=== PATIENT | female | born 1960 | race Caucasian/White ===

== ENCOUNTER 2022-04-19 00:01 | Day surgery (SDC) | payer OTHER, SELFPAY ==
[2022-04-14 07:55] VITALS: BMI 21.5
--- NOTE | 2022-04-14 08:20 | PC.NURSE ---
ATTENTION TEODORA'S STAFF!!!!!!!!!!!! PLEASE GIVE THESE PREOP INSTRUCTIONS TO THE PATIENT AT THE TIME OF TESTING!!!!!!!!!! Report to the Outpatient Waiting Room, entrance under the green pavilion located off [facility] [address], at time _09_ on date _Monday04/19/22_ OR Time: _1129_. Time changes happen often and if your time is changed the preop area will call you the afternoon before. - You and your visitor will be asked to self-screen and do not enter if you have any COVID symptoms. - Only one visitor and NO children visitors are allowed at this time. YOU MAY HAVE TWO (2) VISITORS ONCE ADMITTED TO YOUR ROOM. - The patient visitor is requested to leave or wait in car when not with patient due to restrictions. - A mask is required within the hospital. Patients may have clear liquids (water, carbonated beverages, clear teas, apple juice) until 3 hours prior to surgery ( AT 0830) with a maximum of 20 ounces. - No food from midnight until time of surgery - Take the following medications with a SIP of water the morning of surgery: _LEVOTHYROXINE, GABAPENTIN, OXYCODONE, ROPINOROLE_ Medications to discontinue per physician N/A Date to take last dose N/A Please no make-up, nail english, hairspray, perfume, deodorant, or body powder the day of surgery. No jewelry (including any body piercings) or valuables the day of surgery, leave them at home. Please take a shower or bath the night before, or the morning of, surgery with an antibacterial soap. Wear comfortable, loose fitting clothing. - Jewelry must be removed prior to entering the operating room. Rings and piercings that are not removed may be cut off. - The hospital will not accept responsibility for valuables. - Please leave all valuables, including medications, at home the day of surgery. If you are going home after surgery, a licensed wood pile driver operator must drive you home. - NO public transportation without another adult. - We recommend that an adult stay with you for 24 hours following discharge. - We also recommend that you do not drive, make important decision, drink alcoholic beverages, or take any drugs that were not prescribed by your health care provider for at least 24 hours after your discharge time. Follow any additional instructions given to you from your surgeon. If you or anyone in your household have experienced Covid symptoms in the past week, please notify your surgeon or the nurse liaison at the phone number below for possible testing. Telephone instructions given to _KUMAR__and asked if any additional questions and then verbalized understanding. Patient advised to call surgeon office or pre surgery nurse liaison [phone] if any additional questions.
--- NOTE | 2022-04-18 11:35 | P.PNAN_ITS ---
Anes - Initial Pre Proc Eval Procedure: Operation Date: 04/19/22 11:30 Proposed Procedures p Left Sacral Iliac Joint Fusion, Corelink - Valente Simmons MD Date/Time: 04/18/22 11:35 Surgeon: Valente Simmons MD Pre Op Diagnosis: Sacral Sacroiliitis Patient Data Age: 62 Gender: F Height: 1.63 m Weight: 57 kg Allergies Allergy/AdvReac Type Severity Reaction Status Date / Time No Known Allergies Allergy Verified 04/19/22 09:12 Home Medications Medication Instructions Recorded Confirmed Type atorvastatin 20 mg tablet 20 mg PO DAILY 04/14/22 04/19/22 History calcium carbonate 600 mg-vitamin 1 tablet PO DAILY 04/14/22 04/19/22 History D3 5 mcg (200 unit) tablet furosemide 20 mg tablet 20 mg PO DAILY 04/14/22 04/19/22 History gabapentin 800 mg tablet 8,003 mg PO TID 04/14/22 04/19/22 History levothyroxine 100 mcg tablet 100 mcg PO DAILY 04/14/22 04/19/22 History oxycodone-acetaminophen 7.5 mg-325 1 tablet PO QID 04/14/22 04/19/22 History mg tablet potassium chloride 20 mEq 20 meq PO DAILY 04/14/22 04/19/22 History tablet,extended release(part/cryst) (Klor-Con M) ropinirole 4 mg tablet 4 mg PO HS 04/14/22 04/19/22 History Patient hx anesthesia problems: none Family hx anesthesia problems: none Results Review: All pre-operative results and documents have been reviewed as part of the pre- operative evaluation. [facility] Past Medical History Medical History (Updated 04/18/22 @ 11:37 by Juan Wren MD) Back pain Chronic narcotic use COPD (chronic obstructive pulmonary disease) Engages in vaping Hyperlipidemia Hypothyroidism Social History Social History (Updated 04/14/22 @ 09:06 by Isabella Crockett RN) Smoking packs per day: 1.5 Smoking cigarettes per day: 30.0 Years smoked: 45 (STOPPED CIGARETTES 2020 CURRENTLY VAPES) Smoking pack-years: 67.50 Smoking status: Former smoker Tobacco type: cigarettes and e-cigarettes/vaping Smoking end date: 07/31/19 Additional smoking assessment comments: STOPPED CIGS 2019; NOW VAPES Alcohol intake: current Drinks per week: 1 Substance use: never Last use: 07/31/2019 Living arrangements: with family Spiritual care concerns: No Agree to blood products: Yes Anes - Eval Final PreProcedure Day of Procedure 04/18/22 11:35 Patient weight: normal Heart: regular rate and rhythm Lungs: clear to auscultation and normal air movement Airway: Mallampati scale class II Neurological: alert and oriented Last oral intake: >/= 8 hours ASA classification: III Emergent: no Anesthetic plan: proceed Anesthesia type and monitoring: general ETT Results Review: All pre-operative results and documents have been reviewed as part of the pre- operative evaluation. Informed Consent: The patient's anesthetic plan and its attendant risks and benefits were discussed with the patient/family/POA. Questions were solicited and answers provided to the satisfaction of the patient/family/POA.
[2022-04-19] VITALS (13 sets, daily range): BP systolic 97–156; BP diastolic 65–87; PULSE 56–79; RESP 12–18; TEMP 35.7–37.3; O2SAT 94–100; BMI 21.2
--- NOTE | ~2022-04-19 | XR_ITS ---
EXAMINATION: XR fluoroscopy no charge DATE: 04/19/2022 11:10 CDT INDICATION: LT SACRAL ILIAC JNT FUSION . TECHNIQUE: 3 fluoroscopic images of the left sacroiliac joint were obtained during left sacroiliac hang int fusion performed by the surgeon. I was not present in the operating room. Fluoroscopy exposure ti me was 2 minutes and 15 seconds. Dose area product 2.4625 mGym2. Cumulative air Kerma 134.18 mGy. COMPARISON: None FINDINGS: 3 intraoperative views demonstrate hardware fusion of the left SI joint. Partial visualization of low er lumbar fusion hardware. Partial visualization of a stimulator in the right lower back. IMPRESSION: Fluoroscopic documentation of left SI joint fusion. Please refer to the operative note for complete p rocedural details . Reviewed, dictated and finalized at location K. IMPRESSION: Fluoroscopic documentation of left SI joint fusion. Please refer to the operati ve note for complete procedural details .
[2022-04-19] MEDS: LACTATED RINGERS 1,000 ML 30 ML IV CONT ×2 (09:52→12:41)
--- NOTE | 2022-04-19 10:55 | PM.IMHP ---
H&P: HPI History of Present Illness Date/Time: 04/19/22 10:55 Chief Complaint: Left SI joint pain Narrative: Sophy is a 6-year-old female with left sacroiliitis who presents for a left sacroiliac joint fusion. She has not changed since we saw her last. She does not have new numbness or weakness of her extremities. She does have distal weakness in both lower extremities. She is not having new bowel or bladder difficulty. Review of Systems Review of Systems: Patient denies shortness of breath, cough, fever, chills, weight loss, weight gain, chest pain, dysuria. She acknowledges left sacroiliac pain. Review of systems is otherwise negative except as noted elsewhere. This is on 12 systems. [facility] Past Medical History Medical History Back pain Chronic narcotic use COPD (chronic obstructive pulmonary disease) Engages in vaping Hyperlipidemia Hypothyroidism Social History Social History Smoking packs per day: 1.5 Smoking cigarettes per day: 30.0 Years smoked: 45 (STOPPED CIGARETTES 2020 CURRENTLY VAPES) Smoking pack-years: 67.50 Smoking status: Former smoker Tobacco type: cigarettes and e-cigarettes/vaping Smoking end date: 07/31/19 Additional smoking assessment comments: STOPPED CIGS 2019; NOW VAPES Alcohol intake: current Drinks per week: 1 Substance use: never Last use: 07/31/2019 Living arrangements: with family Spiritual care concerns: No Agree to blood products: Yes Meds Home Medications and Allergies Home Medications Medication Instructions Recorded Confirmed Type atorvastatin 20 mg tablet 20 mg PO DAILY 04/14/22 04/19/22 History calcium carbonate 600 mg-vitamin 1 tablet PO DAILY 04/14/22 04/19/22 History D3 5 mcg (200 unit) tablet furosemide 20 mg tablet 20 mg PO DAILY 04/14/22 04/19/22 History gabapentin 800 mg tablet 8,003 mg PO TID 04/14/22 04/19/22 History levothyroxine 100 mcg tablet 100 mcg PO DAILY 04/14/22 04/19/22 History oxycodone-acetaminophen 7.5 mg-325 1 tablet PO QID 04/14/22 04/19/22 History mg tablet potassium chloride 20 mEq 20 meq PO DAILY 04/14/22 04/19/22 History tablet,extended release(part/cryst) (Klor-Con M) ropinirole 4 mg tablet 4 mg PO HS 04/14/22 04/19/22 History Allergies Allergy/AdvReac Type Severity Reaction Status Date / Time No Known Allergies Allergy Verified 04/19/22 09:12 Vital Signs Vital Signs - 24 hr 04/19/22 09:53 Temperature 99.1 F Pulse Rate 64 Respiratory Rate 16 Blood Pressure 121/85 Pulse Oximetry 96 Oxygen Delivery Room Air Exam Neuro: Other: Strength is significantly diminished in dorsal and plantar flexion bilaterally. She otherwise has normal and symmetric strength. Sensation is intact to light touch in the lower extremities. Clear to auscultation Regular rate and rhythm Assessment and Plan Assessment and plan (1) Sacroiliitis: Code(s): M46.1 - Sacroiliitis, not elsewhere classified Status: Acute Plan Sophy is a 62-year-old female who presents for left sacroiliac joint fusion. I described to her that operation again, its risks, potential benefits, the operative and postoperative course in detail and answered all of her questions personally. She indicates understanding and elects to proceed with that operation.
--- NOTE | 2022-04-19 10:58 | WPDHPUPDATE1 ---
History and Physical Update Update Date/Time: 04/19/22 10:58 History and Physical has been reviewed, including an updated exam of the patient. There are NO changes in the patient's condition. Risks, benefits, and alternatives have been discussed and questions answered. Patient agrees to proceed with procedure.
[2022-04-19] MEDS: ceFAZolin 2 GM/D5W 50 ML 2 GM/50 ML BAG IVPB (11:04)
[2022-04-19] MEDS: LIDO 1%/EPINEPHRINE 1:100,000 20 ML VIAL 10 ML INFILTRATE (11:44)
[2022-04-19] MEDS: HEMOSTATIC MATRIX (SURGIFLO with THROMBIN) KIT 1 KIT XX (11:50)
--- NOTE | 2022-04-19 12:23 | W.PM.PROC2 ---
Procedure Note - Detailed Date of Procedure 04/19/22 Pre-op Diagnosis Sacral Sacroiliitis Post-op Diagnosis Same Procedure Performed Left sacroiliac joint fusion Surgeon Valente Simmons MD [employer] Farm[employer] Edwar Anesthesia General Indications Sophy is a 62-year-old female with a left sacroiliitis who presents for left sacroiliac joint fusion. Description of Procedure Sophy was taken to the operating room in the supine position, was sedated, intubated and placed under general anesthesia in routine fashion. She was then turned into the prone position on gel rolls. Using fluoroscopy the area of operation on the left buttock was marked. The outline of the sacrum was marked and an incision drawn along it. This area was injected with 0.5% lidocaine with [id number] epinephrine. It was prepped and draped in routine sterile fashion. Incision was made with a 15 blade scalpel. A K-wire was placed against the sacrum and using a lateral view position and distal to the foraminal line within the SI joint. Inlet and outlet views were used to advance the K-wire across the SI joint short of the foraminal line. The K-wire was extended and dilators placed over it. A measurement was taken in a 45 mm device was chosen. Sequentially a 40 mm device and another 40 mm device were used in the 2nd and 3rd positions. The middle dilators were removed and the drill followed by the tap were placed under fluoroscopy using the outlet view to stay short of the foraminal line. The 45 mm x 11.5 mm device was then placed across the SI joint through the pelvis into the sacrum. A guide tube was used to place 2 additional K-wires which were in like fashion extended, the tissue dilated, the distance measured, the drill and tap used to create a hole and the device placed using the appropriate petrol tanker driver. After placement of each device a funnel was used to place additional allograft material and the device. Autograft material from the drill and tap were also placed within the devices. Inlet outlet and lateral views were again taken to confirm good position of the devices which was confirmed. The wound was then copiously irrigated with bacitracin irrigation all bleeding stopped with bipolar and Bovie cautery and Gelfoam thrombin powder. The wound was then closed in layered fashion with 3-0 Vicryl interrupted sutures in the dermis and a running 4-0 Monocryl subcuticular stitch in the skin and were dressed with Dermabond and a Telfa and Tegaderm dressing. The patient was then allowed to wake up in the operating room was taken to the recovery room in stable condition. There were no immediate complications of this operation. All counts were reported correct at the end of the case. Blood loss was 25 cc. The patient was neurologically at her baseline postoperatively. Implants Three CoreLink threaded dowel fusion devices across the left SI joint. Estimated Blood Loss 25 IV Fluids 1,000 Complications None Condition Stable Disposition PACU
--- NOTE | 2022-04-19 14:22 | SUR.PHASEI ---
1400 PT MEETS ANESTHESIA CRITERIA TO BE DISCHARGED FROM PACU. NO ROOM AVAILABLE. ON HOLD IN PACU.
--- NOTE | 2022-04-19 14:25 | ADMGEN ---
This patient, Sophy Monterroso, was admitted to Medical Room 244-. Patient/family oriented to hospital policies and general routines including ID bracelet, bed and alarms, visiting hours, pain management, procedures, bathroom and other care routines, personal items, smoking policy, room service/diet, and visiting hours. Information on how to activate the Rapid Response Team has been discussed. Patient/Family are encouraged to report perceived risks to care and to ask questions if they do not understand what they are told or what they should do.
[2022-04-19] MEDS: KCL 20 MEQ/D5/0.45% SOD CHL 1,000 ML 30 ML IV CONT (15:30)
[2022-04-19] MEDS: FUROSEMIDE 20 MG TABLET PO (15:31)
[2022-04-19] MEDS: ATORVASTATIN 20 MG TABLET PO (15:32)
[2022-04-19] MEDS: GABAPENTIN 400 MG CAPSULE 800 MG PO (17:08)
[2022-04-19] MEDS: oxyCODONE/ACETAMINOPHEN (*CRX) 10-325 MG TABLET 1 TAB PO ×2 (17:12→21:39)
[2022-04-19] MEDS: DOCUSATE SODIUM 100 MG CAPSULE PO (20:44)
[2022-04-19] MEDS: rOPINIRole HCL 1 MG TABLET 4 MG PO (20:44)
[2022-04-20 00:11] VITALS: BP 93/59; PULSE 52; RESP 18; TEMP 36; O2SAT 98
[2022-04-20 03:48] VITALS: BP 102/66; PULSE 64; RESP 18; TEMP 35.7; O2SAT 96
[2022-04-20] MEDS: LEVOTHYROXINE SODIUM 100 MCG TABLET PO (05:23)
--- NOTE | 2022-04-20 07:39 | WPDANESPN ---
Anes - Prog Note Post-Op Date/Time: 04/20/22 07:39 Cardiovascular status: normal Respiratory status: normal Airway patency: baseline Mental status: baseline Post-Op hydration status: normal Vital Signs: Last Vital Signs Temp 96.3 F L 04/20/22 03:48 Pulse 64 04/20/22 03:48 Resp 18 04/20/22 03:48 BP 102/66 04/20/22 03:48 Pulse Ox 96 04/20/22 03:48 O2 Del Method Room Air 04/19/22 14:30 O2 Flow Rate 6 04/19/22 13:10 Pain Score (VAS): 0 I/O: Intake & Output 04/19/22 04/19/22 04/20/22 15:59 23:59 07:59 Intake Total 1710 580 390 Output Total 650 400 Balance 1710 -70 -10 04/19/22 09:40 Blood Type A Positive Antibody Screen Negative Patient Feedback: Patient satisfied with anesthetic care.
[2022-04-20] MEDS: ATORVASTATIN 20 MG TABLET PO (08:45)
[2022-04-20] MEDS: GABAPENTIN 400 MG CAPSULE 800 MG PO (08:45)
[2022-04-20] MEDS: DOCUSATE SODIUM 100 MG CAPSULE PO (08:45)
[2022-04-20] MEDS: POTASSIUM CHLORIDE 20 MEQ TABLET.ER PO (08:45)
[2022-04-20 08:49] VITALS: RESP 18; O2SAT 96
== END 2022-04-20 10:35 | disposition home or self-care (01) ==
LOC: ANHSURGERY 08:54 → ANH2MED 14:19
PROVIDERS: PCP Internal Medicine; Visit Provider Neurological Surgery
PROC: (CPT 27280; principal; 2022-04-19 11:30)
DX: M46.1 Sacroiliitis, not elsewhere classified (principal); E78.5 Hyperlipidemia, unspecified; E03.9 Hypothyroidism, unspecified; J44.9 Chronic obstructive pulmonary disease, unspecified; F17.290 Nicotine dependence, other tobacco product, uncomplicated; Z79.891 Long term (current) use of opiate analgesic
CPT/HCPCS: 27279; 36415; 86850; 86900; 86901; 97165; 97530; 97535; 99199; A9270; J0690; J1100; J1170; J2250; J2704; J2710; J3010; J3370; J3480; J7120

== ENCOUNTER 2022-04-23 15:21 | Emergency (ER) | payer OTHER, SELFPAY ==
--- NOTE | ~2022-04-23 | XR_ITS ---
XR hip LT 2V w AP pelvis DATE: 04/23/2022 19:37 INDICATION: Lateral left hip pain. Recent back surgery. TECHNIQUE: AP pelvis. AP and lateral views of left hip COMPARISON: 04/19/2022 lumbar spine FINDINGS: Status post posterior and interbody spinal fusion at L3-S1. Status post surgical fusion of the left sacroiliac joint. Status post right total hip arthroplasty. Right buttock subcutaneous neurotransmitter device with leads extending cephalad toward the thoracic spinal canal. There is osteopenia. Normal alignment at the pubic symphysis and sacroiliac joints. No fracture, dislocation, avascular necrosis or bone destruction of the left hip is detected. Left hi p joint space appears well preserved. IMPRESSION: Osteopenia; no fracture or dislocation, avascular necrosis or bone destruction of left hi p Reviewed, dictated and finalized at location A. IMPRESSION: Osteopenia; no fracture or dislocation, avascular necrosis or bone destruction of left hip
--- NOTE | ~2022-04-23 | XR_ITS ---
XR lumbar spine 2-3V DATE: 04/23/2022 19:37 INDICATION: Low back pain. L4-5 fusion on 04/19 TECHNIQUE: AP, lateral and coned lateral lumbosacral views COMPARISON: None FINDINGS: Osteopenia. There is lumbar laminectomy, and posterior and interbody surgical fusion at L3-S1. There are 3 fixati on screws through the left sacroiliac joint. There is mild dextroscoliosis of the lumbar spine. There there is severe degenerative disc disease at L1-2 with severe interspace loss of height and severe eburnation and degenerative spurring as well a s vacuum phenomenon. Moderately severe degenerative disc disease at L2-3. Status post right total hip arthroplasty. There is a right buttock subcutaneous generator device with neurotransmitter leads extending to the l ower thoracic spinal canal area. Status post cholecystectomy. IMPRESSION: Status post lumbar laminectomy, posterior and interbody spinal fusion at L3-S1 Surgical fusion and left sacroiliac joint Status post right total hip arthroplasty There are severe degenerative disc disease at L1-2, moderately severe degenerative disc disease at L2 -3 Right buttock neurotransmitter device with leads extending to thoracic spinal canal area Status post cholecystectomy Reviewed, dictated and finalized at location A. IMPRESSION: Status post lumbar laminectomy, posterior and interbody spinal fusi on at L3-S1 Surgical fusion and left sacroiliac joint Status post right total hip arthroplasty There are severe degenerative disc disease at L1-2, moderately severe degenerat riley disc disease at L2-3 Right buttock neurotransmitter device with leads extending to thoracic spinal c anal area Status post cholecystectomy
[2022-04-23 15:22] VITALS: BP 124/72; PULSE 94; RESP 16; TEMP 36.1; O2SAT 98
--- NOTE | 2022-04-23 18:47 | ED.BACK ---
HPI - Back Pain/Injury General Chief Complaint: Back Pain/Injury Stated Complaint: back surgery Monday; extreme pain Time Seen by Provider: 04/23/22 18:25 Source: patient Mode of arrival: wheelchair Limitations: no limitations History of Present Illness HPI Narrative: This is a 62-year-old female that presents to the emergency department for left-sided lower back pain. Ongoing over the last couple of days. She had a SI joint fusion on the left at [facility] 4 days ago. Reports the day after the surgery she felt well. Starting that night though she started to have pain in the left lower back. The pain radiates down her leg. She also has had several fusions in her lumbar spine. No injuries. Reports she has been having to use her walker because of the pain. She has been taking oxycodone and gabapentin with little relief. Denies fever, redness and swelling of the area, or new numbness or weakness. Related Data Home Medications Medication Instructions Recorded Confirmed atorvastatin 20 mg tablet 20 mg PO DAILY 04/14/22 04/19/22 calcium carbonate 600 mg-vitamin 1 tablet PO DAILY 04/14/22 04/19/22 D3 5 mcg (200 unit) tablet furosemide 20 mg tablet 20 mg PO DAILY 04/14/22 04/19/22 gabapentin 800 mg tablet 800 mg PO TID 04/14/22 04/19/22 levothyroxine 100 mcg tablet 100 mcg PO DAILY 04/14/22 04/19/22 potassium chloride 20 mEq 20 meq PO DAILY 04/14/22 04/19/22 tablet,extended release(part/cryst) (Klor-Con M) ropinirole 4 mg tablet 4 mg PO HS 04/14/22 04/19/22 Allergies Allergy/AdvReac Type Severity Reaction Status Date / Time No Known Allergies Allergy Verified 04/23/22 19:15 Review of Systems Review of Systems: CONSTITUTIONAL: Denies fever SKIN: Denies rash MUSCULOSKELETAL: Reports back pain, joint pain, and myalgia. NEUROLOGIC: Denies numbness All systems reviewed & are unremarkable except as noted in HPI and below PMFSH Past Medical History Medical History Back pain Chronic narcotic use COPD (chronic obstructive pulmonary disease) Engages in vaping Hyperlipidemia Hypothyroidism Social History Social History Smoking packs per day: 1.5 Smoking cigarettes per day: 30.0 Years smoked: 45 Smoking pack-years: 67.50 Smoking status: Former smoker Tobacco type: cigarettes and e-cigarettes/vaping Smoking end date: 07/31/19 Additional smoking assessment comments: STOPPED CIGS 2019; NOW VAPES Alcohol intake: current Drinks per week: 1 Substance use: never Substance use type: does not use Last use: 07/31/2019 Spiritual care concerns: No Agree to blood products: Yes Exam Narrative: GENERAL: Well-appearing, well-nourished, and in no acute distress. HEAD: Normocephalic, atraumatic. EYES: EOMI. CHEST: Clear to auscultation. No respiratory distress. No wheezes rales or rhonchi HEART: Regular rate and rhythm. No murmur heard. Normal peripheral pulses. BACK: Incision site is clean/dry/intact without surrounding erythema or abnormal drainage. Mild bruising noted EXTREMITIES: Normal range of motion, except decreased active range of motion at the ankles, patient has history of foot drop. No edema or erythema. Normal DP pulses. Normal sensation SKIN: Warm, dry, no rash. NEURO: No focal deficits. Alert and oriented x3. PSYCH: Normal mood and affect Course Consultations Consultation #1: Spoke with Dr. Ceron about patient and workup. Will informs patient's surgeon of workup and ER visit. Patient will be prescribed Medrol dose pack to see if this helps her pain. Patient is able to take some anti-inflammatories if needed for pain Date: 04/23/22 Time: 21:39 Vital Signs Vital signs: Vital Signs Temperature 97.0 F L 04/23/22 15:22 Pulse Rate 94 04/23/22 15:22 Respiratory Rate 16 04/23/22 15:22 Blood Pressure 124/72 04/23/22 15:22 Pulse Oximetry 98 04/23/22 15:2
[2022-04-23 19:08] LABS: Basophils Percent Auto 0.4 % (0.2-1.2); Eosinophils Absolute Auto 0.1 K/mm3 (0-0.3); Eosinophils Percent Auto 1.4 % (0-4.4); Hematocrit 42.5 % (37.0-47.0); Immature Granulocyte Absolute 0.03 K/mm3 (0.00-0.031); Immature Granulocyte Percent A 0.4 % (0-0.5); Lymphocytes Absolute Auto 2.34 K/mm3 (0.9-3.2); Lymphocytes Percent Auto 28.2 % (18.3-44.2); Mean Corpuscular HGB Conc 32.9 g/dl (32-36); Mean Corpuscular Hemoglobin 31.8 pg (26-34); Mean Corpuscular Volume 96.6 fl (80-100); Mean Platelet Volume 9.2 fl (7.4-10.4); Monocytes Absolute Auto 0.8 K/mm3 (0.1-0.6); Monocytes Percent Auto 9.5 % (2.6-8.5); Neutrophils Percent Auto 60.1 % (45.5-73.1); Platelet Count Result 227 k/mm3 (150-375); Red Cell Distribution Width 12.7 % (11.5-14.5); White Blood Count 8.3 K/mm3 (4.5-10.0)
[2022-04-23 19:22] LABS: Anion Gap 9 mmol/L (8-16); Blood Urea Nitrogen 19 mg/dL (7-17); Calcium 9.1 mg/dL (8.4-10.2); Carbon Dioxide 28 mmol/L (22-30); Chloride 100 mmol/L (98-107); Estimated CRCL calculation 55 ml/min; Estimated Glomerular Filt Rate > 60; Glucose 143 mg/dL (65-110); Potassium 3.8 mmol/L (3.4-5.0); Sodium 137 mmol/L (137-145)
[2022-04-23] MEDS: diazePAM INJ (*CRX) 10 MG/2 ML SYRINGE 5 MG IV PUSH (19:43)
[2022-04-23] MEDS: KETOROLAC 15 MG/ML VIAL (*BKC) IV PUSH (19:43)
[2022-04-23 19:55] LABS: Erythrocyte Sedimentation Rate 38 mm/hr (0-20)
== END 2022-04-23 21:57 | disposition home or self-care (01) ==
PROVIDERS: Physician Assistant; Emergency Provider Emergency Medicine; PCP Internal Medicine
DX: M54.42 Lumbago with sciatica, left side (principal); J44.9 Chronic obstructive pulmonary disease, unspecified; E78.5 Hyperlipidemia, unspecified; E03.9 Hypothyroidism, unspecified; Z98.1 Arthrodesis status; F17.290 Nicotine dependence, other tobacco product, uncomplicated; M51.36 Other intervertebral disc degeneration, lumbar region; Z96.82 Presence of neurostimulator; M85.88 Other specified disorders of bone density and structure, other site; Z96.641 Presence of right artificial hip joint
CPT/HCPCS: 36415; 72100; 73502; 80048; 85025; 85652; 86140; 96365; 96375; 99284; J0131; J1885; J3360

== ENCOUNTER 2022-06-06 12:32 | Outpatient (CLI) | payer OTHER, SELFPAY ==
--- NOTE | ~2022-06-06 | XR_ITS ---
EXAMINATION: XR sacroiliac joints min 3V DATE: 06/06/2022 12:47 INDICATION: Left sacroiliac joint effusion. TECHNIQUE: 3 views of the sacroiliac joints were obtained. COMPARISON: Pelvis and left hip radiographs 04/23/22 FINDINGS: There is a total right hip arthroplasty in near-anatomic alignment. There are changes of an terior and posterior fusion procedures in lumbosacral spine. There are changes of fusion procedure of left sacroiliac joint with 3 screws. No periimplant lucency to suggest loosening or infection. Right sacroiliac joint is normal. An electronic device overlies right pelvis with wires extending superior to the radiograph. IMPRESSION: 1. Fusion procedure of left sacroiliac joint. Reviewed, dictated and finalized at location A. [employer]
== END 2022-06-06 12:33 | disposition home or self-care (01) ==
PROVIDERS: PCP Internal Medicine; Visit Provider Neurological Surgery
DX: M46.1 Sacroiliitis, not elsewhere classified (principal); Z98.890 Other specified postprocedural states; Z98.1 Arthrodesis status
CPT/HCPCS: 72202